=== PATIENT | female | born 1985 | race Caucasian/White ===

== ENCOUNTER 2019-04-09 13:04 | Emergency (ER) | payer OTHER ==
[2019-04-09 13:30] VITALS: BP 136/71; PULSE 90; TEMP 98.4; BMI 43.1
--- NOTE | 2019-04-09 13:44 | PDOC ---
History of Present Illness - General Chief Complaint: Sore Throat Stated Complaint: SORE THROAT Time Seen by Provider: 04/09/19 13:34 History Source: Patient Exam Limitations: No Limitations (sorethroat and voice hoarness X 1 month) - History of Present Illness Associated Symptoms: denies: cough, fever/chills, rash, shortness of breath Past History - Travel Traveled outside of the country in the last 30 days: No Close contact w/someone who was outside of country & ill: No - Past Medical History Allergies/Adverse Reactions: Allergies Allergy/AdvReac Type Severity Reaction Status Date / Time No Known Allergies Allergy Verified 04/09/19 13:30 - Psycho Social/Smoking Cessation Hx Smoking History: Never smoked Have you smoked in the past 12 months: No Information on smoking cessation initiated: No Hx Alcohol Use: No Drug/Substance Use Hx: No Review of Systems - Review of Systems Constitutional: No: Chills, Fever HEENTM: Yes: Throat Pain. No: Nose Congestion, Throat Swelling, Difficulty Swallowing Respiratory: No: Cough, Shortness of Breath ABD/GI: No: Abdominal Distended, Diarrhea, Nausea, Vomiting : No: Dysuria, Discharge, Frequency, Flank Pain, Hematuria, Incontinence, Urgency *Physical Exam - Vital Signs Last Vital Signs Temp Pulse Resp BP Pulse Ox 98.4 F 90 16 136/71 100 04/09/19 13:26 04/09/19 13:26 04/09/19 13:26 04/09/19 13:26 04/09/19 13:26 - Physical Exam General Appearance: Yes: Nourished HEENT: positive: EOMI, TESHA, TMs Normal, TM Erythema. 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 NML intact, Fully Oriented, Alert, Normal Mood/ Affect, Normal Response, Motor Strength 5/5 Medical Decision Making - Medical Decision Making 04/09/19 13:41 sorethroat and voice hoarseness X 1 month 6wks denies any abd pain, pelvic or vag bleed 04/09/19 17:46 Rapid strep neg cx sent ENT referral given given chronic hoarseness Discharge - Discharge Information Problems reviewed: Yes Clinical Impression/Diagnosis: Sorethroat Condition: Stable Disposition: HOME - Additional Discharge Information Prescription Drug Monitoring Program (I-STOP) results: I-STOP not reviewed - Follow up/Referral Referrals: Melvin Montalvo MD [Staff Physician] - - Patient Discharge Instructions Additional Instructions: Your strep was negative today, a culture will be sent out, if positive you will be contacted for antibiotics. Please gargle with salty warm water follow up with ENT doctor Please take medication as prescribed Follow up with your primary care doctor Return to the ER If worsening symptoms occurs - Post Discharge Activity
== END 2019-04-09 14:15 | disposition home or self-care (01) ==
LOC: JERFT 13:04
DX: J02.9 Acute pharyngitis, unspecified (principal)
CPT/HCPCS: 87070; 87880; 99281-25

== ENCOUNTER 2022-03-31 15:10 | Emergency (ER) | payer OTHER ==
[2022-03-31 15:16] VITALS: BP 121/69; PULSE 105; RESP 18; TEMP 98.4; BMI 46.0
[2022-03-31] MEDS ORDERED: DEXAMETHASONE SOD PHOSPHATE 10 MG/1 ML VIAL IM ONE (15:55)
[2022-03-31] MEDS ORDERED: ALBUTEROL SO4 2.5/IPRATROPIUM 0.5 INH SOL 3 ML VIAL.NEB. NEB ONE ×2 (15:57→16:12)
[2022-03-31] MEDS ORDERED: guaiFENesin 200 MG/10 ML 10 ML UNIT-DOSE CUPS PO ONE (16:06)
[2022-03-31] MEDS ORDERED: guaiFENesin 200 MG/10 ML 10 ML UNIT-DOSE CUPS ONE (16:12)
[2022-03-31] MEDS ORDERED: DEXAMETHASONE SOD PHOSPHATE 10 MG/1 ML VIAL ONE (16:12)
== END 2022-03-31 17:27 | disposition home or self-care (01) ==
LOC: JERFT 15:10 → EDBD 15:10 → JERFT 17:27
PROC: 3E0F7GC Introduction of Other Therapeutic Substance into Respiratory Tract, Via Natural or Artificial Opening (ICD-10-PCS; principal; 2022-03-31)
PROC: 3E0233Z Introduction of Anti-inflammatory into Muscle, Percutaneous Approach (ICD-10-PCS; 2022-03-31)
DX: R05.1 Acute cough (principal)
CPT/HCPCS: 71046-TC-FY; 99284-25; J1100

== ENCOUNTER 2022-08-25 11:59 | Emergency (ER) | payer OTHER ==
[2022-08-25 12:32] VITALS: BP 128/72; PULSE 105; RESP 18; TEMP 97.9; BMI 47.5
== END 2022-08-25 14:38 | disposition home or self-care (01) ==
LOC: JER 11:59 → JERFT 11:59
DX: N64.4 Mastodynia (principal); M25.561 Pain in right knee
CPT/HCPCS: 73560-TC-RT-FY; 76642-TC-LT; 99284-25